=== PATIENT | male | born 1980 ===

== ENCOUNTER 2016-09-19 07:13 | Emergency (ER) | payer OTHER ==
[2016-09-19 07:19] VITALS: BP 138/90; PULSE 71; O2SAT 100
[2016-09-19 07:29] VITALS: RESP 16; TEMP 98.2
--- NOTE | 2016-09-19 07:56 | ED PDOC ---
Arrival/HPI - General Chief Complaint: ENT Problem Time Seen by Provider: 09/19/16 07:30 Past Medical History - Psychiatric Hx Substance Use: No - Anesthesia Hx Anesthesia: No Family/Social History Smoking Status: Never Smoked Hx Alcohol Use: No Hx Substance Use: No Allergies/Home Meds Allergies/Adverse Reactions: Allergies No Known Allergies Allergy (Verified 09/19/16 07:26) Physical Exam Vital Signs Temp Pulse Resp BP Pulse Ox 09/19/16 07:26 98.2 F 71 16 138/90 100 09/19/16 07:18 71 138/90 100 Medical Decision Making - Medication Orders Current Medication Orders: Discontinued Medications Amoxicillin (Amoxil 500 Mg Cap) 500 mg PO STAT STA Stop: 09/19/16 07:48 Ketorolac Tromethamine (Toradol) 60 mg IM STAT STA Stop: 09/19/16 07:48 Disposition/Present on Arrival - Present on Arrival Any Indicators Present on Arrival: No - Disposition Have Diagnosis and Disposition been Completed?: Yes Diagnosis: Right ear pain, Otitis media Disposition: HOME/ ROUTINE Disposition Time: 07:55 Patient Plan: Discharge Condition: GOOD Discharge Instructions (ExitCare): Otitis Media (ED) Print Language: ICELANDIC Additional Instructions: Follow up with PMD within 2 days. Return to ED if condition worsens. Take full course of antibiotics. Motrin for pain Prescriptions: Amoxicillin 500 mg PO TID #20 tablet Referrals: [facility] [Outside] [facility] [Outside]
--- NOTE | 2016-09-19 08:02 | ED PDOC ---
HPI: CCC, URI, Sore Throat Time Seen by Provider: 09/19/16 07:30 Chief Complaint (Nursing): ENT Problem Chief Complaint (Provider): ENT Problem History Per: Patient History/Exam Limitations: no limitations Onset/Duration Of Symptoms: Hrs Current Symptoms Are (Timing): Still Present Location Of Pain: Ear(s) Sick Contacts (Context): None Associated Symptoms: denies: Chills, Sore Throat, Sputum Ear Symptoms: Left: None, Right: Ear Pain Severity: Moderate Additional Complaint(s): Patient is a 36 year old male who presents to ED accompanied by mother for evaluation of right ear pain. Patient reports that the pain was mild yesterday but worsened today. He denies facial swelling, throat pain, throat swelling, teeth pain, L ear pain, or nasal discharge. Denies head trauma. Denies discharge from the ear. Denies recent swimming or recent dental work. Patient denies fever or neck pain. PMD: Denies Past Medical History Reviewed: Historical Data, Nursing Documentation, Vital Signs Vital Signs: Last Vital Signs Temp 98.2 F 09/19/16 07:26 Pulse 71 09/19/16 07:26 Resp 16 09/19/16 07:26 BP 138/90 09/19/16 07:26 Pulse Ox 100 09/19/16 09:17 - Medical History PMH: No Chronic Diseases - Surgical History Surgical History: No Surg Hx - Family History Family History: States: No Known Family Hx - Living Arrangements Living Arrangements: With Family - Home Medications Home Medications: Ambulatory Orders Medication Instructions Recorded Amoxicillin 500 mg PO TID #20 tablet 09/19/16 - Allergies Allergies/Adverse Reactions: Allergies Allergy/AdvReac Type Severity Reaction Status Date / Time No Known Allergies Allergy Verified 09/19/16 07:26 Review of Systems ROS Statement: Except As Marked, All Systems Reviewed And Found Negative Constitutional: Negative for: Fever, Chills ENT: Positive for: Ear Pain. Negative for: Ear Discharge, Nose Discharge, Nose Congestion, Mouth Pain, Mouth Swelling, Throat Pain, Throat Swelling Cardiovascular: Negative for: Chest Pain Respiratory: Negative for: Cough, Shortness of Breath, SOB with Exertion Gastrointestinal: Negative for: Nausea, Vomiting, Abdominal Pain, Diarrhea, Constipation Musculoskeletal: Negative for: Neck Pain Skin: Negative for: Rash Neurological: Negative for: Weakness Physical Exam - Reviewed Nursing Documentation Reviewed: Yes Vital Signs Reviewed: Yes - Physical Exam Appears: Positive for: Well, Non-toxic, No Acute Distress Skin: Positive for: Normal Color, Warm. Negative for: Rash Eye Exam: Positive for: Normal appearance ENT: Positive for: TM Is/Are (Left clear. Right (+) erythema), Other ((-) dental tenderness, abscess, or caries. No facial swelling. No trismus). Negative for: Nasal Congestion, Pharyngeal Erythema Neck: Positive for: Normal, Painless ROM, Supple. Negative for: Decreased ROM Cardiovascular/Chest: Positive for: Regular Rate, Rhythm. Negative for: Murmur Respiratory: Positive for: Normal Breath Sounds. Negative for: Rales, Rhonchi, Stridor, Respiratory Distress Extremity: Positive for: Normal ROM Neurologic/Psych: Positive for: Alert, Oriented - ECG O2 Sat by Pulse Oximetry: 100 (RA) Pulse Ox Interpretation: Normal Medical Decision Making Medical Decision Making: Time: 744 Initial impression: Otitis media Initial plan: -- Amoxillicin PO -- Toradol IM Scribe Attestation: Documented by Flori Tinoco acting as a scribe for Madisyn Curran MD MD Scribe Attestation: All medical record entries made by the Scribe were at my direction and personally dictated by me. I have reviewed the chart and agree that the record accurately reflects my personal performance of the history, physical exam, medical decision making, and the department course for this patient. I have also personally directed, reviewed, and agree with the discharge instructions and disposition. Disposition - Clinical Impression Clinical Impression: Right ear pain, Otitis media - Disposition Referrals: [facility] [Outside] [facility] [Outside] Disposition Time: 08:15 Condition: GOOD Additional Instructions: Follow up with PMD within 2 days. Return to ED if condition worsens. Take full course of antibiotics. Motrin for pain Prescriptions: Amoxicillin 500 mg PO TID #20 tablet Instructions: Otitis Media (ED) Print Language: ARABIC
== END 2016-09-19 08:31 | disposition home or self-care (01) ==
LOC: H.ER 07:13
DX: H66.91 Otitis media, unspecified, right ear (principal)

== ENCOUNTER 2016-09-25 11:04 | Emergency (ER) | payer SELFPAY ==
[2016-09-25 11:11] VITALS: PULSE 87; RESP 18; TEMP 99.2; O2SAT 100
[2016-09-25 11:33] VITALS: BP 110/74
--- NOTE | 2016-09-25 12:20 | ED PDOC ---
HPI: Back Time Seen by Provider: 09/25/16 12:11 Chief Complaint (Nursing): Back Pain Chief Complaint (Provider): back pain History Per: Patient History/Exam Limitations: no limitations Additional Complaint(s): 36yo M in ED states he was in ED 09/19/16 received torodol IM in buttock(left) and since has been having pain to muscle noted only with muscle mov't and lessend when idle since. has take advil with limited relief. denies fever, chills, nausea vomiting. denies redness, swelling or drainage from area. Past Medical History Reviewed: Historical Data, Nursing Documentation, Vital Signs Vital Signs: Last Vital Signs Temp 99.2 F 09/25/16 11:30 Pulse 87 09/25/16 11:30 Resp 18 09/25/16 11:30 BP 110/74 09/25/16 11:30 Pulse Ox 100 09/25/16 11:30 - Medical History PMH: No Chronic Diseases - Family History Family History: States: No Known Family Hx - Home Medications Home Medications: Ambulatory Orders Medication Instructions Recorded Amoxicillin 500 mg PO TID #20 tablet 09/19/16 Cyclobenzaprine [Cyclobenzaprine 10 mg PO BID #14 tab 09/25/16 HCl] Ibuprofen [Motrin] 400 mg PO Q6 #30 tab 09/25/16 - Allergies Allergies/Adverse Reactions: Allergies Allergy/AdvReac Type Severity Reaction Status Date / Time No Known Allergies Allergy Verified 09/19/16 07:26 Review of Systems ROS Statement: Except As Marked, All Systems Reviewed And Found Negative Musculoskeletal: Positive for: Back Pain Physical Exam - Reviewed Nursing Documentation Reviewed: Yes Vital Signs Reviewed: Yes - Physical Exam Appears: Positive for: Well, Non-toxic, No Acute Distress Head Exam: Positive for: ATRAUMATIC, NORMAL INSPECTION, NORMOCEPHALIC Skin: Positive for: Normal Color, Warm, DRY Neck: Positive for: Painless ROM Cardiovascular/Chest: Positive for: Regular Rate, Rhythm Respiratory: Positive for: CNT, Normal Breath Sounds Gastrointestinal/Abdominal: Positive for: Normal Exam, Bowel Sounds, Soft Back: Positive for: Other (left buttock: no area of ertyhema, induration, swelling fluctance drainage noted. very minimal pain illicted with hard palpation. no evidence of abscess or fluid collection noted. FROM of LE good pulses. no skin changes. ) Extremity: Positive for: Normal ROM. Negative for: Tenderness, Pedal Edema, Calf Tenderness, Swelling Neurologic/Psych: Positive for: Alert, Oriented - ECG O2 Sat by Pulse Oximetry: 100 - Radiology X-Ray: Interpreted by Me X-Ray Interpretation: No Acute Disease - Progress ED Course And Treament: impression: muscle brusing low likely ma of abscess formation. will get xray Medical Decision Making Medical Decision Making: Pt with normal xray adivsed strongly to continue applying warm compress to area dn f.u with pmd for further testing if needed. Disposition - Clinical Impression Clinical Impression: Gluteal pain - Patient ED Disposition Is Patient to be Admitted: No Counseled Patient/Family Regarding: Studies Performed, Diagnosis, Need For Followup - Disposition Referrals: [facility] [Outside] [facility] [Outside] Disposition: Routine/Home Disposition Time: 13:19 Condition: STABLE Prescriptions: Cyclobenzaprine [Cyclobenzaprine HCl] 10 mg PO BID #14 tab Ibuprofen [Motrin] 400 mg PO Q6 #30 tab Instructions: Contusion in Adults (ED) Print Language: MACEDONIAN
--- NOTE | 2016-09-25 14:57 | RAD ---
PROCEDURE: Radiographs of the Sacrum and Coccyx HISTORY: left sided pain COMPARISON: None available. TECHNIQUE: Frontal and lateral views of the sacrum and coccyx FINDINGS: BONES: Sacrum and coccyx unremarkable. No acute displaced fracture identified. SACROILIAC JOINTS: Unremarkable. OTHER FINDINGS: None. IMPRESSION: Unremarkable radiographs of the sacrum and coccyx.
== END 2016-09-25 15:00 | disposition home or self-care (01) ==
LOC: H.ER 11:04
DX: M54.9 Dorsalgia, unspecified (principal)

== ENCOUNTER 2017-08-15 07:10 | Emergency (ER) | payer OTHER ==
--- NOTE | 2017-08-15 08:01 | ED PDOC ---
Lower Extremity Pain/Injury Time Seen by Provider: 08/15/17 07:33 Chief Complaint (Nursing): Lower Extremity Problem/Injury Chief Complaint (Provider): Lower Extremity Problem/Injury History Per: Patient History/Exam Limitations: language barrier (Interpretor: Reena) Onset/Duration Of Symptoms: Days (x3) Current Symptoms Are (Timing): Still Present Additional Complaint(s): Alice Perez is a 37 year old male with no past medical history, who is presenting to the ER with complaints of left knee pain associated with swelling , onset 3 days ago. Patient reports the pain is sharp and limits his ability to ambulate. He states that he had a fever yesterday afternoon, but denies any other joint pain, injury, or trauma. Patient denies any headaches, rash, or prior history of joint pain or swelling. He offers no other medical complaints at this time. Of note, patient arrived to the ED on crutches. PMD: none provided Past Medical History Reviewed: Historical Data, Nursing Documentation, Vital Signs Vital Signs: Last Vital Signs Temp 98.1 F 08/15/17 07:32 Pulse 90 08/15/17 07:32 Resp 18 08/15/17 07:32 BP 138/88 08/15/17 07:32 Pulse Ox 99 08/15/17 07:32 - Medical History PMH: No Chronic Diseases - Surgical History Surgical History: No Surg Hx - Family History Family History: States: Unknown Family Hx - Social History Current smoker - smoking cessation education provided: No Alcohol: None Drugs: Denies - Home Medications Home Medications: Ambulatory Orders Medication Instructions Recorded Indomethacin [Indocin] 50 mg PO TID #12 cap 08/15/17 traMADol [Ultram] 50 mg PO TID PRN #12 tab 08/15/17 - Allergies Allergies/Adverse Reactions: Allergies Allergy/AdvReac Type Severity Reaction Status Date / Time No Known Allergies Allergy Verified 09/19/16 07:26 Review of Systems ROS Statement: Except As Marked, All Systems Reviewed And Found Negative Constitutional: Positive for: Fever. Negative for: Other (injury, trauma) Musculoskeletal: Positive for: Leg Pain (left knee pain) Skin: Negative for: Rash Neurological: Negative for: Headache Physical Exam - Reviewed Nursing Documentation Reviewed: Yes Vital Signs Reviewed: Yes - Physical Exam Appears: Positive for: Well, Non-toxic, No Acute Distress Head Exam: Positive for: ATRAUMATIC, NORMAL INSPECTION, NORMOCEPHALIC Skin: Positive for: Normal Color. Negative for: Rash Neck: Positive for: Normal, Painless ROM, Supple Respiratory: Negative for: Respiratory Distress Gastrointestinal/Abdominal: Positive for: Normal Exam, Soft. Negative for: Tenderness Extremity: Positive for: Swelling (left knee), Other (Left Knee: (+) mild warmth (-) erythema). Negative for: Normal ROM ((+) limited ROM of left knee, ( +) ankle and hip full ROM) Neurologic/Psych: Positive for: Alert, Oriented. Negative for: Motor/Sensory Deficits - Laboratory Results Result Diagrams: 08/15/17 08:00 08/15/17 08:00 - ECG O2 Sat by Pulse Oximetry: 99 (RA) Pulse Ox Interpretation: Normal Medical Decision Making Medical Decision Making: Time: 7:44 Plan: --CMP --Uric Acid --CBC --Erythrocyte Sedimentation Rate --Coag --X-Ray Left Knee --Toradol 15 mg IVP Rule out: inflammatory versus infectious arthritis versus internal derangement of the knee. labs reviewed mild elev WBC and ESR Chem unremarkable XRay read by radiologist Accession No. : [id number] Patient Name / ID : OLIVIA MATIAS / [id number] Exam Date : 08/15/2017 08:07:19 ( Approved ) Study Comment : Sex / Age : M / [id number] Creator : Dennys Mae MD Dictator : Dennys Mae MD Classroom Instructional Aide : Keyseater Operator : Dennys Mae MD Approver2 : Report Date : 08/15/2017 08:44:17 My Comment : PROCEDURE: Left Knee Radiographs. HISTORY: Pain. COMPARISON: Right knee radiographs dated 06/27/2015. FINDINGS: BONES: No acute fracture. JOINTS: Chondrocalcinosis within the tibial femoral compartment. JOINT EFFUSION: Large joint effusion. OTHER FINDINGS: None. IMPRESSION: No demonstrated fracture or dislocation. Chondrocalcinosis within the tibial femoral compartment is nonspecific, but can be seen in setting of CPPD arthropathy. Procedure note L knee arthrocentesis Indication L knee pain/effusion w elev ESR, WBC r/o septic arthritis Consent obtained via package yarns drying machine operator michael Daugherty Time out performed, limb/ID/equipment/fire hazard/allergies verified Using sterile technique throughout, betadine prep, sterile drapes, lidocaine 2% 5ml infiltrate to skin and subcutaneous structures using 18g needle, inferior patella border identified, medial approach needle inserted 1cm inferior to superior border patella w/ return yellow slightly turbid fluid. 30cc withdrawn and placed into sterile containers for appropriate diagnostics/cultures/ crystals. Confirmed w lab procedure to order crystals. synovial fluid analytics reveal WBC 46K RBC 9k, +gouty crystals seen on path While in ED pt spike low grade fever D/w Dr Perla sap portal consultant ortho, all diagnostics reviewed, fever discussed and he called lab leadership to expedite gram stain. Gram stain negative for organisms Per ortho ok to discharge, contact info provided for orthopedics and instructions in dutch for indications for return given. Results and recommendations discussed at length via package yarns drying machine operator aarti MOCK fluent civil cad tech. Knee immobilizer placed and crutch training offered. update 08/19/17 3pm culture grew coag neg staph, broth only Called patient discussed in dutch via Geno MOCK civil cad tech. States pain is improved, hes ambulating, swelling has improved, no fever. Completed course indocin. Has appt w [facility] . Given clinical improvement culture possible contaminant , but requires close followup. Instructed return ER for any new pain, fever, redness, swelling or any concern. Scribe Attestation: Documented by Katarina Escudero, acting as a scribe for Brian Cesar DO. Provider Scribe Attestation: All medical record entries made by the Scribe were at my direction and personally dictated by me. I have reviewed the chart and agree that the record accurately reflects my personal performance of the history, physical exam, medical decision making, and the department course for this patient. I have also personally directed, reviewed, and agree with the discharge instructions and disposition. Disposition - Clinical Impression Clinical Impression: Gout, arthritis - Patient ED Disposition Is Patient to be Admitted: No Counseled Patient/Family Regarding: Studies Performed, Diagnosis - Disposition Referrals: [facility] [Outside] Disposition: Routine/Home Disposition Time: 16:09 Condition: STABLE Additional Instructions: Followup with clinic as directed. Take medication as directed for gout. Stay well hydrated. Wear knee immobilizer, keep leg elevated, use crutches to ambulate. Return to ER for any worse or new symptoms, fever, worse pain or any concern. espanol Seguimiento con clnica y ortopedia rashad se indica. Rozel la medicacin segn lo indicado para la gota. Mantngase maxim hidratado. Utilice el inmovilizador de la rodilla, mantenga la pierna elevada, utilice las muletas a ambulate. Vuelva a er para aiden si hay sntomas peores o nuevos, fiebre, peor dolor o cualquier preocupacin. Llame a ortopedia Dr Perla al [phone] para cualquier inquietud, dolor o fiebre dillon el fin de semana. Prescriptions: Indomethacin [Indocin] 50 mg PO TID #12 cap traMADol [Ultram] 50 mg PO TID PRN #12 tab PRN Reason: Pain, Moderate (4-7) Instructions: Lifestyle Changes to Manage Gout, Gout (DC) Forms: [employer] (Maori) Print Language: URUGUAYAN
[2017-08-15 08:24] LABS: ALB/GLOB RATIO 1.2 (1.0-2.1); ALBUMIN 4.4 g/dL (3.5-5.0); CALCIUM 9.2 mg/dL (8.4-10.2); GFR AFRICAN-AMERICAN > 60; GFR NON-AFRICAN AMERICAN > 60; URIC ACID 6.9 mg/Dl (3.5-8.5)
[2017-08-15 08:28] LABS: ALT/SGPT 37 U/L (21-72); AST/SGOT 31 U/L (17-59); BLOOD UREA NITROGEN 16 mg/dl (9-20)
[2017-08-15 08:30] LABS: INR 1.1 (0.9-1.2); PARTIAL THROMBOPLASTIN TIME 28.9 Seconds (25.6-37.1); PROTHROMBIN TIME 12.5 Seconds (9.8-13.1)
[2017-08-15 08:31] LABS: BASO % 0.3 % (0.0-2.0); EOS # 0.2 K/uL (0.0-0.7); HEMOGLOBIN 15.5 g/dL (12.0-18.0); LYMPH # 2.6 K/uL (1.0-4.3); LYMPH % 21.9 % (20.0-40.0); MEAN CELL VOLUME 86.4 fl (80.0-94.0); MEAN CORPUSCULAR HEMOGLOBIN 29.4 pg (27.0-31.0); MEAN CORPUSCULAR HGB CONC 34.1 g/dL (33.0-37.0); MEAN PLATELET VOLUME 9.7 fl (7.2-11.7); MONO # 1.2 K/uL (0.0-0.8); MONO % 9.9 % (0.0-10.0); NEUT # 7.8 K/uL (1.8-7.0); NEUT % 65.9 % (50.0-75.0); NRBC % 0.1 % (0.0-0.0); RBC 5.26 Mil/uL (4.40-5.90); RED CELL DISTRIBUTION WIDTH 13.5 % (11.5-14.5); WHITE BLOOD COUNT 11.9 K/uL (4.8-10.8)
--- NOTE | 2017-08-15 08:45 | RAD ---
PROCEDURE: Left Knee Radiographs. HISTORY: Pain. COMPARISON: Right knee radiographs dated 06/27/2015. FINDINGS: BONES: No acute fracture. JOINTS: Chondrocalcinosis within the tibial femoral compartment. JOINT EFFUSION: Large joint effusion. OTHER FINDINGS: None. IMPRESSION: No demonstrated fracture or dislocation. Chondrocalcinosis within the tibial femoral compartment is nonspecific, but can be seen in setting of CPPD arthropathy.
[2017-08-15] MEDS ORDERED: Lidocaine 2% Inj (20ml) IJ ONE (10:32)
[2017-08-15] MEDS ORDERED: Povidone Iodine Topical 10% Sol ONE (11:21)
[2017-08-15 12:13] LABS: FLUID TYPE SYNOVIAL FLUID
[2017-08-15 13:36] LABS: SF GROSS APPEARANCE CLOUDY (CLEAR)
[2017-08-15 13:37] LABS: SYNOVIAL FLUID COMMENT LT.YELLOW
[2017-08-15 14:02] LABS: SYNOVIAL FLUID MONO/MACROPHAGE 5 % (0-0)
[2017-08-15 17:52] VITALS: BP 130/77; PULSE 78; RESP 18; TEMP 98
[2017-08-19 14:56] VITALS: O2SAT 99
== END 2017-08-15 18:22 | disposition home or self-care (01) ==
LOC: H.ER 07:10
DX: M10.9 Gout, unspecified (principal); M17.12 Unilateral primary osteoarthritis, left knee
CPT/HCPCS: 29530; 73562; 80053; 83986; 84550; 85025; 85610; 85651; 85730; 87070; 87205; 88104; 88305; 89051; 96374; 99285; J1885; J2270

== ENCOUNTER 2017-08-26 11:18 | Emergency (ER) | payer SELFPAY ==
[2017-08-26] MEDS ORDERED: Sodium Chloride 0.9% 1,000 ML IV STA (13:17)
--- NOTE | 2017-08-26 14:00 | ED PDOC ---
Lower Extremity Pain/Injury Time Seen by Provider: 08/26/17 12:18 Chief Complaint (Nursing): Lower Extremity Problem/Injury Chief Complaint (Provider): left knee pain History Per: Patient History/Exam Limitations: no limitations Onset/Duration Of Symptoms: Days (x1 week) Current Symptoms Are (Timing): Still Present Additional Complaint(s): Alice Blackman is a 37 year old male, with no significant past medical history, who presents to the emergency department complaining of left knee pain onset for x11 days. Patient reports he has trouble bending the knee. Patient was seen in the ED last week for the same symptom, he was prescribed Indocin and Tramadol with mild pain relief but no improvement. Patient states he followed up with clinic but they didn't give him medications. He denies any injuries, fever, chills or other medical complaints. PMD: None provided. Past Medical History Reviewed: Historical Data, Nursing Documentation, Vital Signs Vital Signs: Last Vital Signs Temp 98.4 F 08/26/17 11:34 Pulse 92 H 08/26/17 11:34 Resp 16 08/26/17 11:34 BP 123/77 08/26/17 11:34 Pulse Ox 97 08/26/17 11:34 - Medical History PMH: No Chronic Diseases - Surgical History Surgical History: No Surg Hx - Family History Family History: States: Unknown Family Hx - Home Medications Home Medications: Ambulatory Orders Medication Instructions Recorded Indomethacin [Indocin] 50 mg PO TID #12 cap 08/15/17 traMADol [Ultram] 50 mg PO TID PRN #12 tab 08/15/17 Acetaminophen with Codeine 1 tab PO Q6H PRN #15 tab 08/26/17 [Tylenol with Codeine No. 3 300 mg-30 mg] Naproxen [Naprosyn] 500 mg PO BID PRN #20 tablet 08/26/17 - Allergies Allergies/Adverse Reactions: Allergies Allergy/AdvReac Type Severity Reaction Status Date / Time No Known Allergies Allergy Verified 09/19/16 07:26 Review of Systems ROS Statement: Except As Marked, All Systems Reviewed And Found Negative Constitutional: Negative for: Fever, Chills Musculoskeletal: Positive for: Leg Pain (left knee) Physical Exam - Reviewed Nursing Documentation Reviewed: Yes Vital Signs Reviewed: Yes - Physical Exam Appears: Positive for: Non-toxic Head Exam: Positive for: ATRAUMATIC, NORMOCEPHALIC Skin: Positive for: Normal Color, Warm, Dry Eye Exam: Positive for: Normal appearance Neck: Positive for: Painless ROM Respiratory: Negative for: Respiratory Distress Extremity: Positive for: Swelling (Joint localized moderate edema). Negative for: Normal ROM (Decreased knee flexion.), Deformity Neurologic/Psych: Positive for: Alert, Oriented, Gait (limp). Negative for: Motor/Sensory Deficits - Laboratory Results Result Diagrams: 08/26/17 14:19 08/26/17 14:19 - ECG O2 Sat by Pulse Oximetry: 97 (RA) Pulse Ox Interpretation: Normal Medical Decision Making Medical Decision Making: Initial Impression: left knee pain Initial Plan: --CMP --CBC w/ differential --Erythrocyte sedimentation rate --Lower XT ANY JNT LT w/wo CONT [MRI] --Morphine 4 mg IV --Sodium Chloride 1,000 ml IV 1,000 mls/hr --Blood culture Pt seen and examined by [facility] nursing assistant who is working with Dr. Perla. Pt stable for discharge. D/c with NSAID and tylenol #3 for pain. Scribe Attestation: Documented by Salvador Almeida, acting as a scribe for Emilia Marley PA-C Provider Scribe Attestation: All medical record entries made by the Scribe were at my direction and personally dictated by me. I have reviewed the chart and agree that the record accurately reflects my personal performance of the history, physical exam, medical decision making, and the department course for this patient. I have also personally directed, reviewed, and agree with the discharge instructions and disposition. Disposition - Clinical Impression Clinical Impression: Gout - Patient ED Disposition Is Patient to be Admitted: No Counseled Patient/Family Regarding: Diagnosis, Need For Followup, Rx Given - Disposition Disposition: Routine/Home Disposition Time: 18:05 Condition: STABLE Prescriptions: Acetaminophen with Codeine [Tylenol with Codeine No. 3 300 mg-30 mg] 1 tab PO Q6H PRN #15 tab PRN Reason: Pain, Severe (8-10) Naproxen [Naprosyn] 500 mg PO BID PRN #20 tablet PRN Reason: Pain Instructions: Lifestyle Changes to Manage Gout Forms: [employer] [facility] (Kiswahili) Print Language: DIVEHI
[2017-08-26] MEDS ORDERED: Morphine 4 MG/ML VIAL ONE (14:01)
[2017-08-26] MEDS ORDERED: Morphine 4 MG/ML VIAL IV STA (14:12)
[2017-08-26 14:29] LABS: BASO % 0.1 % (0.0-2.0); EOS % 0.2 % (0.0-4.0); HEMOGLOBIN 15.8 g/dL (12.0-18.0); LYMPH # 1.9 K/uL (1.0-4.3); LYMPH % 12.7 % (20.0-40.0); MEAN CELL VOLUME 85.4 fl (80.0-94.0); MEAN CORPUSCULAR HEMOGLOBIN 29.7 pg (27.0-31.0); MEAN CORPUSCULAR HGB CONC 34.8 g/dL (33.0-37.0); MEAN PLATELET VOLUME 9.1 fl (7.2-11.7); MONO % 6.5 % (0.0-10.0); NEUT # 12.2 K/uL (1.8-7.0); NEUT % 80.5 % (50.0-75.0); RBC 5.33 Mil/uL (4.40-5.90); RED CELL DISTRIBUTION WIDTH 12.9 % (11.5-14.5); WHITE BLOOD COUNT 15.2 K/uL (4.8-10.8)
[2017-08-26] MEDS: Lactated Ringer's 1,000 ML IV SCH ×3 (14:49→17:09)
[2017-08-26 15:11] LABS: ALB/GLOB RATIO 1.3 (1.0-2.1); ALBUMIN 4.2 g/dL (3.5-5.0); ALT/SGPT 50 U/L (21-72); AST/SGOT 18 U/L (17-59); BLOOD UREA NITROGEN 13 mg/dl (9-20); CALCIUM 9.2 mg/dL (8.4-10.2); GFR AFRICAN-AMERICAN > 60; GFR NON-AFRICAN AMERICAN > 60
[2017-08-26] MEDS ORDERED: Gadodiamide 287 MG/ML VIAL (15ML) IV ONE (15:38)
[2017-08-26] MEDS ORDERED: Lidocaine 1% (10 ml) Inj INFIL STA (16:51)
[2017-08-26] MEDS ORDERED: Lidocaine 1% Inj (20ml) ONE (16:58)
--- NOTE | 2017-08-26 17:33 | MRI ---
MRI left knee History: Knee edema. Evaluate for septic arthritis. Comparison: None available. Technique: Multi-echo multiplanar sequences were performed through the left knee without and with the use of intravenous contrast. Findings: Thinning and attenuation with increased signal seen within the mid to distal tendon strand fibers of the anterior cruciate ligament suggestive for partial interstitial tearing. Posterior cruciate ligament is preserved. Transverse linear oblique signal seen within the body and posterior horn of the medial meniscus demonstrating apparent extension to the articular surface suggestive for a possible tear. Adjacent moderate grade strain at the posterior meniscocapsular junction. Linear increased signal seen within the anterior root and horn of the lateral meniscus extending to the articular surface at the level of the root suggestive for a possible small tear. Moderate grade sprain of the medial collateral ligament. Lateral collateral ligament complex structures appear grossly preserved. Interstitial delamination of the distal quadriceps tendinopathy. Mild proximal patellar tendinopathy. Patellar cartilage is preserved. Thinning and fraying with increased signal seen within the medial and lateral patellar retinaculum suggestive for strains and or partial tearing. Large suprapatellar joint effusion with associated synovial debris, hypertrophy, and septations with a suggestion of peripheral enhancement. This is of uncertain clinical etiology and may be related to posttraumatic changes however superimposed and / or acute inflammatory and or infectious changes cannot be excluded. Clinical correlation. Correlation with joint aspiration may be helpful. No gross corresponding marrow signal abnormality within the adjacent osseous structures. Mild cartilage thinning involving the medial compartment of the femorotibial joint space. Increased signal seen within the visualized vastus lateralis and the vastus medialis muscle bellies which may represent an underlying myositis and/or muscle strain/partial tear. Clinical correlation. Impression: 1. Large suprapatellar joint effusion with associated synovial debris, hypertrophy, and septations with a suggestion of peripheral enhancement. This is of uncertain clinical etiology and may be related to posttraumatic changes however superimposed and / or acute inflammatory and or infectious changes cannot be excluded. Clinical correlation. Correlation with joint aspiration may be helpful. No gross corresponding marrow signal abnormality within the adjacent osseous structures. 2. Thinning and attenuation with increased signal seen within the mid to distal tendon strand fibers of the anterior cruciate ligament suggestive for partial interstitial tearing. 3. Transverse linear oblique signal seen within the body and posterior horn of the medial meniscus demonstrating apparent extension to the articular surface suggestive for a possible tear. Adjacent moderate grade strain at the posterior meniscocapsular junction. 4. Linear increased signal seen within the anterior root and horn of the lateral meniscus extending to the articular surface at the level of the root suggestive for a possible small tear. 5. Moderate grade sprain of the medial collateral ligament. 6. Interstitial delamination of the distal quadriceps tendinopathy. Mild proximal patellar tendinopathy. Correlation with thigh MRI may be helpful if clinically indicated. 7. Thinning and fraying with increased signal seen within the medial and lateral patellar retinaculum suggestive for strains and or partial tearing. 8. Mild cartilage thinning involving the medial compartment of the femorotibial joint space. 9. Increased signal seen within the visualized vastus lateralis and the vastus medialis muscle bellies which may represent an underlying myositis and/or muscle strain/partial tear. Clinical correlation.
[2017-08-26 18:12] LABS: FLUID TYPE SYNOVIAL FLUID
--- NOTE | 2017-08-26 18:20 | CP.PCM.CON ---
History of Present Illness - History of Present Illness History of Present Illness: Patient is a 37 y/o male with no significant PMH who presents to the ER with complaints of left knee pain and swelling. The patient denies any recent history of injury or trauma. The patient had visited the ER earlier this month on 08/15/17 with similar complaints. His knee was aspirated and he was diagnosed with gouty arthritis. He was sent home with NSAID's and pain medication which mildly helped with the pain over the past two weeks. Over the past day, the patient experienced progressively worsening pain which prompted his ER visit today. He states that his pain is severe, sharp and stabbing in quality. The pain is intermittent in frequency and is associated with swelling. He requires the use of crutches to ambulate, but is able to weight bear without much pain. He denies radiation of pain, numbness or tingling. Review of Systems - Review of Systems All systems: reviewed and no additional remarkable complaints except Review of Systems: as per HPI Past Patient History - Past Medical History & Family History Past Family History: Reviewed and not pertinent - Past Social History Smoking Status: Never Smoked Alcohol: None Drugs: Denies - CARDIAC Hx Cardiac Disorders: No - PULMONARY Hx Respiratory Disorders: No - NEUROLOGICAL Hx Neurological Disorder: No - HEENT Hx HEENT Problems: No - RENAL Hx Chronic Kidney Disease: No - ENDOCRINE/METABOLIC Hx Endocrine Disorders: No - HEMATOLOGICAL/ONCOLOGICAL Hx Blood Disorders: No - INTEGUMENTARY Hx Dermatological Problems: No - MUSCULOSKELETAL/RHEUMATOLOGICAL Hx Gout: Yes - GASTROINTESTINAL Hx Gastrointestinal Disorders: No - GENITOURINARY/GYNECOLOGICAL Hx Genitourinary Disorders: No - PSYCHIATRIC Hx Psychophysiologic Disorder: No Hx Substance Use: No - SURGICAL HISTORY Hx Surgeries: No - ANESTHESIA Hx Anesthesia: No Meds Home Medications: Home Medication List Medication Instructions Recorded Confirmed Type Acetaminophen with Codeine 1 tab PO Q6H PRN #15 tab 08/26/17 Rx [Tylenol with Codeine No. 3 300 mg-30 mg] Naproxen [Naprosyn] 500 mg PO BID PRN #20 tablet 08/26/17 Rx Allergies/Adverse Reactions: Allergies Allergy/AdvReac Type Severity Reaction Status Date / Time No Known Allergies Allergy Verified 09/19/16 07:26 - Medications Medications: Current Medications Lactated Ringer's (Lactated Ringer's) 1,000 mls @ 1,000 mls/hr IV .Q1H RIKY Last Admin: 08/26/17 17:09 Dose: Not Given Physical Exam - Constitutional Appears: Well, No Acute Distress - Head Exam Head Exam: ATRAUMATIC, NORMOCEPHALIC - Eye Exam Eye Exam: EOMI, Normal appearance, PERRL - ENT Exam ENT Exam: Mucous Membranes Moist, Normal Exam - Respiratory Exam Respiratory Exam: Clear to Auscultation Bilateral, NORMAL BREATHING PATTERN - Cardiovascular Exam Cardiovascular Exam: REGULAR RHYTHM - GI/Abdominal Exam GI & Abdominal Exam: Normal Bowel Sounds, Soft - Extremities Exam Additional comments: L knee: moderate swelling, large effusion, no erythema, no lesions sensation intact SP/DP/TN ROM (deg) 0-70 motor intact EHL/FHL/TA/G pedal pulses intact comp soft NT - Neurological Exam Neurological exam: Alert, Oriented x3 - Psychiatric Exam Psychiatric exam: Normal Affect, Normal Mood - Skin Skin Exam: Normal Color, Warm Results - Vital Signs Recent Vital Signs: Last Vital Signs Temp 98.4 F 08/26/17 11:34 Pulse 92 H 08/26/17 11:34 Resp 16 08/26/17 11:34 BP 123/77 08/26/17 11:34 Pulse Ox 97 08/26/17 18:07 - Labs Result Diagrams: 08/26/17 14:19 08/26/17 14:19 Labs: Laboratory Results - last 24 hr 08/26/17 08/26/17 08/26/17 14:19 14:19 14:19 WBC 15.2 H D RBC 5.33 Hgb 15.8 Hct 45.5 MCV 85.4 MCH 29.7 MCHC 34.8 RDW 12.9 Plt Count 319 MPV 9.1 Neut % (Auto) 80.5 H Lymph % (Auto) 12.7 L [place] % (Auto) 6.5 Eos % (Auto) 0.2 Baso % (Auto) 0.1 Neut # (Auto) 12.2 H Lymph # (Auto) 1.9 [place] # (Auto) 1.0 H Eos # (Auto) 0.0 Baso # (Auto) 0.0 ESR 31 H Sodium 139 Potassium 3.2 L Chloride 98 Carbon Dioxide 26 Anion Gap 18 BUN 13 Creatinine 0.8 Est GFR ( Amer) > 60 Est GFR (Non-Af Amer) > 60 Random Glucose 106 Lactic Acid 1.5 Calcium 9.2 Total Bilirubin 1.0 AST 18 ALT 50 Alkaline Phosphatase 90 Total Protein 7.4 Albumin 4.2 Globulin 3.2 Albumin/Globulin Ratio 1.3 Fluid Type 08/26/17 18:10 WBC RBC Hgb Hct MCV MCH MCHC RDW Plt Count MPV Neut % (Auto) Lymph % (Auto) [place] % (Auto) Eos % (Auto) Baso % (Auto) Neut # (Auto) Lymph # (Auto) [place] # (Auto) Eos # (Auto) Baso # (Auto) ESR Sodium Potassium Chloride Carbon Dioxide Anion Gap BUN Creatinine Est GFR ( Amer) Est GFR (Non-Af Amer) Random Glucose Lactic Acid Calcium Total Bilirubin AST ALT Alkaline Phosphatase Total Protein Albumin Globulin Albumin/Globulin Ratio Fluid Type Synovial fluid Assessment & Plan (1) Gout, arthritis Assessment and Plan: Patient is a 37 y/o male with Left knee gouty arthritis -f/u lab tests -WBAT with crutches -NSIAD's, colchicine and pain medication -ice -f/u with scientific research associate/PMD for treatment -above d/w Dr. Perla in agreement Status: Acute Procedures - Time-Out PA/Tech: Carlitos Ron PA-C Procedure: Fluid Aspiration - Time Performed Time Performed: 17:00 - Time Out Time Out: Side verified, Site verified - Procedure Procedure: Arthrocentesis - Consent Obtained Consent obtained: Verbal - Performed By Performed by: Mid-level Provider - Indications Indication(s): Therapeutic, Diagnostic, Joint effusion - Location Location: Left - Anesthetic Technique Anesthetic Technique: Local Anesthetic: Lidocaine 1% Procedure: Usual prep and drape - Appearance Appearance: Straw-colored - Drained Drained ml: 60 - Post-procedure Post-procedure: Dressed - Complications Complications: None - Patient tolerated procedure Patient tolerated procedure: Well Radiology Interpretation - Notes: Notes:: Accession No. : [id number] Patient Name / ID : OLIVIA MATIAS / [id number] Exam Date : 08/26/2017 15:37:46 ( Approved ) Study Comment : Sex / Age : M / 37Y Creator : Jose Ramon Chicas MD Dictator : Jose Ramon Chicas MD Visual Effects Editor : Biology Faculty Member : Jose Ramon Chicas MD Approver2 : Report Date : 08/26/2017 17:31:53 My Comment : MRI left knee History: Knee edema. Evaluate for septic arthritis. Comparison: None available. Technique: Multi-echo multiplanar sequences were performed through the left knee without and with the use of intravenous contrast. Findings: Thinning and attenuation with increased signal seen within the mid to distal tendon strand fibers of the anterior cruciate ligament suggestive for partial interstitial tearing. Posterior cruciate ligament is preserved. Transverse linear oblique signal seen within the body and posterior horn of the medial meniscus demonstrating apparent extension to the articular surface suggestive for a possible tear. Adjacent moderate grade strain at the posterior meniscocapsular junction. Linear increased signal seen within the anterior root and horn of the lateral meniscus extending to the articular surface at the level of the root suggestive for a possible small tear. Moderate grade sprain of the medial collateral ligament. Lateral collateral ligament complex structures appear grossly preserved. Interstitial delamination of the distal quadriceps tendinopathy. Mild proximal patellar tendinopathy. Patellar cartilage is preserved. Thinning and fraying with increased signal seen within the medial and lateral patellar retinaculum suggestive for strains and or partial tearing. Large suprapatellar joint effusion with associated synovial debris, hypertrophy , and septations with a suggestion of peripheral enhancement. This is of uncertain clinical etiology and may be related to posttraumatic changes however superimposed and / or acute inflammatory and or infectious changes cannot be excluded. Clinical correlation. Correlation with joint aspiration may be helpful. No gross corresponding marrow signal abnormality within the adjacent osseous structures. Mild cartilage thinning involving the medial compartment of the femorotibial joint space. Increased signal seen within the visualized vastus lateralis and the vastus medialis muscle bellies which may represent an underlying myositis and/or muscle strain/partial tear. Clinical correlation. Impression: 1. Large suprapatellar joint effusion with associated synovial debris, hypertrophy, and septations with a suggestion of peripheral enhancement. This is of uncertain clinical etiology and may be related to posttraumatic changes however superimposed and / or acute inflammatory and or infectious changes cannot be excluded. Clinical correlation. Correlation with joint aspiration may be helpful. No gross corresponding marrow signal abnormality within the adjacent osseous structures. 2. Thinning and attenuation with increased signal seen within the mid to distal tendon strand fibers of the anterior cruciate ligament suggestive for partial interstitial tearing. 3. Transverse linear oblique signal seen within the body and posterior horn of the medial meniscus demonstrating apparent extension to the articular surface suggestive for a possible tear. Adjacent moderate grade strain at the posterior meniscocapsular junction. 4. Linear increased signal seen within the anterior root and horn of the lateral meniscus extending to the articular surface at the level of the root suggestive for a possible small tear. 5. Moderate grade sprain of the medial collateral ligament. 6. Interstitial delamination of the distal quadriceps tendinopathy. Mild proximal patellar tendinopathy. Correlation with thigh MRI may be helpful if clinically indicated. 7. Thinning and fraying with increased signal seen within the medial and lateral patellar retinaculum suggestive for strains and or partial tearing. 8. Mild cartilage thinning involving the medial compartment of the femorotibial joint space. 9. Increased signal seen within the visualized vastus lateralis and the vastus medialis muscle bellies which may represent an underlying myositis and/or muscle strain/partial tear. Clinical correlation.
[2017-08-26 18:23] LABS: SF GROSS APPEARANCE TURBID (CLEAR)
[2017-08-26 18:34] LABS: URIC ACID 7.2 mg/Dl (3.5-8.5)
[2017-08-26 19:02] LABS: SYNOVIAL FLUID MONO/MACROPHAGE 10 % (0-0)
[2017-08-26 19:44] VITALS: BP 122/76; PULSE 78; RESP 18; TEMP 98; O2SAT 100
== END 2017-08-26 19:44 | disposition home or self-care (01) ==
LOC: H.ER 11:18
DX: M10.9 Gout, unspecified (principal); M17.12 Unilateral primary osteoarthritis, left knee
CPT/HCPCS: 73723; 80053; 83605; 83986; 84550; 85025; 85651; 87040; 87070; 87205; 88104; 88305; 89051; 99281; A9579; J2270; J7040